=== PATIENT | female | born 1965 | race Caucasian/White ===

== ENCOUNTER 2022-11-01 09:45 | Outpatient (CLI) | payer MEDICARE | END 2022-11-01 09:46 | disposition home or self-care (01) | LOC: BURRAD 09:45 | PROVIDERS: ATTEND Family Medicine | DX: M54.6 Pain in thoracic spine (principal); M54.2 Cervicalgia; M47.814 Spondylosis without myelopathy or radiculopathy, thoracic region; M47.812 Spondylosis without myelopathy or radiculopathy, cervical region | CPT/HCPCS: 72050; 72072 ==